=== PATIENT | female | born 1990 | race Caucasian/White ===

== ENCOUNTER 2017-03-20 20:00 | Inpatient (IN) | payer OTHER ==
--- NOTE | ~2017-03-20 | PN ---
Unit #: [id number] #: [id number] Patient: EDUARDA ARANGO [id number] [facility] [address] [place] [address] [id number] MR#: [id number] NAME: EDUARDA ARANGO ROOM: [facility] Age: 26 Sex: F Admission Date: 03/20/2017 : 1990 Attending Physician: Jose Solorzano M.D. Admitting Physician: Jose Solorzano M.D. Primary Care Physician: Primary Care Physician Vera GREY NOTES DATE 03/24/2017 DISCUSSION Ms. Eduarda Arango is a 26-year-old female seen on 03/24/2017. Patient tolerating medication fairly well. Compliant, cooperative. Patient reports sleeping good. Medication is helping her, cooperative, redirectable. Still isolative, guarded, flat affect. Complete review of system unremarkable. MENTAL STATUS EXAMINATION Patient's vital signs 98.5, 86, 16, 110/60. Attention span, concentration fair. Oriented in time, place and person. Mood and affect sad, dysphoric, flat. Speech monotone. Thought process concrete. Patient denied any thoughts of harming self or others but somewhat guarded. Recent and remote memory poor. Insight and judgement poor. DIAGNOSES 1. Opiate use disorder, severe. 2. Mood disorder NOS. ASSESSMENT/PLAN Advised to continue with current medication and therapeutic protocol. If needed, consider further adjustment of medication. Dictated by... Chiara Rocha/jessica TD: 03/24/2017 22:03 JOB #: [id number] Unit #: [id number] #: [id number] Patient: EDUARDA ARANGO AMISH PROGRESS NOTES Page 1 of 1 X Jose Solorzano MD X PROGRESS NOTE
--- NOTE | ~2017-03-20 | HP ---
Unit #: [id number] #: [id number] Patient: EDUARDA CUETO [id number] [place] [address] [id number] I MR#: [id number] NAME: EDUARDA CUETO ROOM: 86 Age: 26 Sex: F Admission Date: 03/20/2017 : 1990 Attending Physician: Jose Solorzano M.D. Admitting Physician: Jose Solorzano M.D. Primary Care Physician: Primary Care Physician No HISTORY AND PHYSICAL HISTORY OF PRESENT ILLNESS Eduarda is a 26 year old admitted to [facility] because of her abuse of opioids. PAST MEDICAL HISTORY Long history of opioid abuse. PAST SURGICAL HISTORY Nothing reported. ALLERGIES No known drug allergies. SOCIAL HISTORY Smokes 1 pack per day. Denies alcohol. Admits to a history of illicit substance abuse to include opioids. FAMILY HISTORY Medically noncontributory. REVIEW OF SYSTEMS CONSTITUTIONAL: No fever or chills. HEENT: Denies any sore throat, ear pain or runny nose. CARDIOVASCULAR: Denies chest pain, irregular heart rhythm or palpitations. CHEST: Denies shortness of breath or cough. No hemoptysis. GASTROINTESTINAL: Denies nausea, vomiting, diarrhea or chronic constipation. ENDOCRINE: Denies history of increased thirst or urination. No recent significant weight loss or gain. GENITOURINARY: Denies dysuria, frequency, or hematuria. SKIN: Denies any rashes. HEMATOLOGIC: Denies history of increased bleeding or bruising. MUSCULOSKELETAL: Denies any hot, swollen joints. No generalized muscle pain. NEUROLOGIC: Denies problems with vision or speech. No frequent, severe headaches. No numbness, tingling or weakness in any extremities. Denies loss of bladder or bowel control. CURRENT MEDICATIONS 1. Detox protocol. 2. Lamictal 25 mg q.a.m. 3. Zyprexa 5 mg q.h.s. 4. BuSpar 10 mg b.i.d. Unit #: [id number] #: [id number] Patient: EDUARDA CUETO PHYSICAL EXAMINATION GENERAL: Alert, well-nourished, in no apparent distress. VITAL SIGNS: Blood pressure 118/52, heart rate 64, respirations 16, temperature 98.6. WEIGHT: 115. HEIGHT: 5 feet 3 inches. SKIN: Warm and dry without rash or lesion. HEENT: Normocephalic. TMs not viewed. Oral and nasal passages clear. Conjunctivae clear. PERRLA. EOMs intact. NECK: Supple without lymphadenopathy or thyromegaly. HEART: Regular rate and rhythm without murmur. LUNGS: Clear. ABDOMEN: Soft, nontender. : Not done. EXTREMITIES: No evidence of cyanosis, clubbing or edema. Moves all without focal deficit. NEUROLOGICAL: Grossly within normal limits. Cranial Nerves: II: Visual tavarez are intact. III, IV AND : Extraocular movements are intact. Pupils are equal, round and reactive to light. V: Facial sensation is grossly normal. VII: Facial movements and expression are normal. VIII: Auditory acuity grossly intact. IX, X: Uvula is midline. Phonation is normal. XI: Patient shrugs shoulders and turns head normally. XII: Tongue protrudes in the midline. Sensory and Motor Function: Sensory and motor sensation is grossly normal. Motor: moves all extremities well. Coordination: Gait is normal. Deep Tendon Reflexes: Intact. IMPRESSION Psychiatric admission. RECOMMENDATIONS PSYCHIATRIC: Per psychiatrist. MEDICAL: See no contraindications to participate in facility's activities. MEDICAL PROGNOSIS Good. MEDICAL CONDITION Stable. Dictated by... Nika Hester PDaeADae-Gunner. for Chiara Mei/jessica TD: 03/21/2017 23:25 JOB #: [id number] Unit #: [id number] #: [id number] Patient: EDUARDA CUETO HISTORY AND PHYSICAL Page 1 of 1 X Nika Hester HISTORY AND PHYSICAL
--- NOTE | ~2017-03-20 | PN ---
Unit #: [id number] #: [id number] Patient: EDUARDA ARANGO [id number] [facility] [address] [place] [address] [id number] I MR#: [id number] NAME: EDUARDA ARANGO ROOM: [facility] Age: 26 Sex: F Admission Date: 03/20/2017 : 1990 Attending Physician: Jose Solorzano M.D. Admitting Physician: Jose Solorzano M.D. Primary Care Physician: Primary Care Physician Vera WELLINGTON PROGRESS NOTES DATE OF SERVICE: 03/25/2017 DISCUSSION Ms. Eduarda Arango is a 26-year-old female, seen on 03/25/2017. The patient interviewed, chart reviewed, and obtained information from nursing staff. The patient compliant, cooperative, making progress. Affect bright. Mood good. The patient scheduled to start naltrexone today and will get an injection of Vivitrol tomorrow. REVIEW OF SYSTEMS Complete review of systems unremarkable. MENTAL STATUS EXAMINATION General appearance, the patient dressed casually. Attention span and concentration, fair. Oriented in place and person. Mood and affect, labile. Speech, monotone. Thought process, concrete. The patient denied any thoughts of harming self or others. Recent and remote memory, poor. Insight and judgment, poor. DIAGNOSIS Opioid use disorder, severe. ASSESSMENT AND PLAN Advised to continue with current medication and therapeutic protocol. If needed, consider further adjustment of medication. Dictated by... Chiara Rocha/ant TD: 03/25/2017 14:21 JOB #: [id number] Unit #: [id number] #: [id number] Patient: EDUARDA ARANGO JUAN ANTONIOLEYDI PROGRESS NOTES Page 1 of 1 X Jose Solorzano MD PROGRESS NOTE
--- NOTE | ~2017-03-20 | DS ---
Unit #: [id number] #: [id number] Patient: KARMEN CUETO [id number] [facility] [address] [place] [address] [id number] MR#: [id number] NAME: KARMEN CUETO ROOM: [facility] Age: 26 Sex: F Admission Date: 03/20/2017 : 1990 Discharge Date: 03/26/2017 Attending Physician: Jose Solorzano M.D. Primary Care Physician: Primary Care Physician No DISCHARGE SUMMARY REASON FOR ADMISSION Opiate abuse, opiate detox. DIAGNOSTIC STUDIES Laboratory data is remarkable for a glucose of 118, urine drug screen positive for opiates. HOSPITAL COURSE The patient was admitted to inpatient unit on March 20, and discharged on March 26, 2017. The patient was treated on the inpatient unit with the detox protocol, detox monitoring, chemical dependency group, expressive therapy. The patient was responsive to treatment. Subsequently, the patient was discharged with the plan to follow up in outpatient program. DISCHARGE DIAGNOSES Theodore I Major depressive disorder, recurrent, severe, F33.2. Opiate use disorder, severe, F11.20. Theodore II Deferred. Theodore III Fibromyalgia. Theodore IV Psychosocial stressor. Theodore V INSTRUCTIONS TO PATIENT The patient is to follow up in outpatient clinic. DISCHARGE MEDICATIONS 1. BuSpar 20 mg daily for anxiety 2. Zyprexa 5 mg at bedtime for mood stabilization 3. The patient was also given ReVia challenge and scheduled to get Vivitrol injection 380 mg deep intramuscularly monthly and follow up in CD/IOP program Dictated by... Chiara Rocha/winston TD: 03/27/2017 12:21 Unit #: [id number] #: [id number] Patient: KARMEN CUETO JOB #: [id number] DISCHARGE SUMMARY Page 1 of 1 X Jose Solorzano MD X DISCHARGE SUMMARY
--- NOTE | ~2017-03-20 | PN ---
Unit #: [id number] #: [id number] Patient: KARMEN CUETO [id number] [facility] [address] [place] [address] [id number] I MR#: [id number] NAME: KARMEN CUETO ROOM: [facility] Age: 26 Sex: F Admission Date: 03/20/2017 : 1990 Attending Physician: Jose Solorzano M.D. Admitting Physician: Jose Solorzano M.D. Primary Care Physician: Primary Care Physician Vera GREY NOTES DATE OF SERVICE: 03/23/2017 DISCUSSION Ms. Lerner is a 26-year-old female, seen on 03/23/2017. The patient continues to be isolative, guarded, paranoid, reported having withdrawal symptoms, sad, depressed, anxious. The patient still having lot of anxiety, mood labile, compliant with medication. Complete review of systems unremarkable. MENTAL STATUS EXAMINATION General appearance, the patient dressed casually. Attention span and concentration, fair. Oriented in place and person. Mood and affect, labile. Speech, monotone. Thought process, concrete. The patient denied any thoughts of harming others, but having passive SI, withdrawn, isolative, guarded. Recent and remote memory, poor. Insight and judgment, poor. DIAGNOSES 1. Opioid use disorder, severe. 2. Mood disorder, not otherwise specified. ASSESSMENT AND PLAN Advised to continue with current medication and therapeutic protocol. If needed, consider further adjustment of medication. Dictated by... Chiara Rocha/ant TD: 03/23/2017 17:22 JOB #: [id number] Unit #: [id number] #: [id number] Patient: KARMEN CUETO AMISH PROGRESS NOTES Page 1 of 1 X Jose Solorzano MD PROGRESS NOTE
--- NOTE | ~2017-03-20 | PN ---
Unit #: [id number] #: [id number] Patient: KARMEN CUETO [id number] [facility] [address] [place] [address] [id number] MR#: [id number] NAME: KARMEN CUETO ROOM: [facility] Age: 26 Sex: F Admission Date: 03/20/2017 : 1990 Attending Physician: Jose Solorzano M.D. Admitting Physician: Jose Solorzano M.D. Primary Care Physician: Primary Care Physician Vera GREY NOTES DATE OF SERVICE: 03/21/2017 DISCUSSION Ms. Lerner is a 26-year-old female, seen on 03/21/2017. The patient interviewed, chart reviewed, and obtained information from nursing staff. The patient is sad, depressed, anxious, nervous, withdrawn, flat, dysphoric mood. The patient is still having withdrawal symptoms. Mood is sad and depressed. Vital signs; heart rate 65 and respirations 16. REVIEW OF SYSTEMS Complete review of systems is unremarkable. MENTAL STATUS EXAMINATION General appearance; the patient dressed casually. Attention span and concentration, fair. Oriented in place and person. Mood and affect, labile. Speech, monotone. Thought process, concrete. The patient reported having hallucination of voices and suicidal ideation. Denied any plan. Recent and remote memory, fair. Insight and judgment, fair to slightly impaired. DIAGNOSES Psychiatric: Major depressive disorder, recurrent; opioid use disorder, severe. ASSESSMENT AND PLAN Advised to continue with current medication. If needed, consider adding SSRI. Dictated by... Chiara Rocha/ant TD: 03/22/2017 07:44 JOB #: [id number] Unit #: [id number] #: [id number] Patient: KARMEN CUETO AMISH PROGRESS NOTES Page 1 of 1 X Jose Solorzano MD PROGRESS NOTE
--- NOTE | ~2017-03-20 | PN ---
Unit #: [id number] #: [id number] Patient: KARMEN CUETO [id number] [facility] [address] [place] [address] [id number] MR#: [id number] NAME: KARMEN CUETO ROOM: [facility] Age: 26 Sex: F Admission Date: 03/20/2017 : 1990 Attending Physician: Jose Solorzano M.D. Admitting Physician: Jose Solorzano M.D. Primary Care Physician: Primary Care Physician Vera GREY NOTES DATE 03/22/2017 DISCUSSION Ms. Lerner is a 26-year-old female, seen on 03/22/2017. The patient interviewed, chart reviewed, and obtained information from the nursing staff. The patient was compliant and cooperative. Mood sad and dysphoric, flat affect. The patient is detoxing from opiates. The patient reports feeling better but still having some withdrawal symptoms, anxious, nervous. The patient's vital signs, 98.5, 60, 95/48. REVIEW OF SYSTEMS Complete review of systems unremarkable. MENTAL STATUS EXAMINATION General appearance: Patient dressed casually. Attention span and concentration, fair. Oriented in time, place, and person. Mood and affect, labile. The patient denied any thoughts of harming self or others. Recent and remote memory, poor. Insight and judgment, poor. DIAGNOSES 1. Opiate use disorder, severe. 2. Mood disorder, NOS. ASSESSMENT/PLAN Advised to continue with the current medication and therapeutic protocol, and if needed consider further adjustment of medication. Dictated by... Chiara Rocha/winston TD: 03/23/2017 10:03 JOB #: [id number] Unit #: [id number] #: [id number] Patient: KARMEN CUETO AMISH PROGRESS NOTES Page 1 of 1 X Jose Solorzano MD PROGRESS NOTE
--- NOTE | ~2017-03-20 | PA ---
Unit #: [id number] #: [id number] Patient: KARMEN CUETO [id number] [place] [address] [id number] MR#: [id number] NAME: KARMEN CUETO ROOM: [facility] Age: 26 Sex: F Admission Date: 03/20/2017 : 1990 Date of Assessment: 03/21/2017 Attending Physician: Jose Solorzano M.D. Admitting Physician: Jose Solorzano M.D. Primary Care Physician: Primary Care Physician No PSYCHIATRIC ASSESSMENT INFORMANTS The patient reliability, fair informant and chart reliability, good. CHIEF COMPLAINT Detox from Lortab. HISTORY OF PRESENT ILLNESS Ms. Lerner is a 26-year-old female, presented with the above-mentioned complaint. The patient reported using Lortab. Reported also using [place] and Lortab 60 to 80 mg for the last 1 year. The patient reports last use of [place] 1 month ago and Lortab last use 2 days ago. The patient reported suicidal ideation with a plan to overdose on sleeping pills. The patient reported hearing a male voice. No command hallucination. The patient reported paranoid thinking, multiple stressors, walking off from the job, feeling sad and depressed. The patient also reported unemployed for the last 2 weeks. She has GED. Lives with her 3-year-old son. The patient has a history of fibromyalgia. Reported conflict with sister and son's dad over the drug use and anger issues. The patient reported she takes olanzapine 5 mg at bedtime, BuSpar 10 mg b.i.d., and lamotrigine. The patient reported tobacco use, age of onset 18 and opioid, age of onset 25. Longest period of sobriety a week, last period of sobriety a month. The patient reported no history of blackout, HIV, hepatitis, or drug abuse. History of withdrawal symptoms as mentioned above. The patient is currently reporting abdominal cramping, muscle cramping, diaphoresis, diarrhea, depressed mood, headache, irritability, nervousness, and poor appetite. Needing inpatient admission at this time for psychiatric stabilization. PAST PSYCHIATRIC HISTORY Unremarkable for any history of previous treatment except at age 15, inpatient at [facility]. FAMILY HISTORY AND SOCIAL HISTORY No history of abuse. Currently, unemployed. Poor support system. MEDICAL HISTORY Remarkable for fibromyalgia. Musculoskeletal; muscle strength and tone, no atrophy or abnormal movement. Gait normal. MEDICATION HISTORY The patient is on Lamictal 25 mg in the morning, BuSpar 10 mg b.i.d., and Zyprexa 5 mg at bedtime. Unit #: [id number] #: [id number] Patient: KARMEN CUETO ALLERGIES No known drug allergies. SUBSTANCE ABUSE HISTORY Please see above. REVIEW OF SYSTEMS HEENT: Eyes, clear. Ears, nose, mouth, and throat; clear. CARDIOVASCULAR: Unremarkable. RESPIRATORY: Unremarkable. GI: Unremarkable. : Unremarkable. SKIN: Unremarkable. LYMPH NODE: Unremarkable. NEUROLOGIC: Unremarkable. ENDOCRINE: Unremarkable. HEMATOLOGIC: Unremarkable. ALLERGIC/IMMUNOLOGIC: Unremarkable. MUSCULOSKELETAL: Muscle strength and tone, no atrophy or abnormal movement. Gait normal. MENTAL STATUS EXAMINATION CONSTITUTIONAL: Measurement of vital signs; temperature 98.6, heart rate 65, respiratory rate 16, and blood pressure 118/53. Height 5 feet 3 inches and weight 115 pounds. GENERAL APPEARANCE: The patient dressed casually. The patient did not show any facial deformity. MUSCULOSKELETAL: Please see above. PSYCHIATRIC EXAMINATION Description of speech; regular rate, normal volume, normal articulation, coherent, and spontaneous. Description of thought process, goal directed. Description of association, intact. Description of abnormal psychotic thinking; the patient denied any hallucinations or delusions, but reported to staff hearing a male voice, feeling sad and depressed, and suicidal ideation. Description of the patient's judgment: Concerning everyday activity, poor. Social situation, poor. Concerning psychiatric condition, poor. ASSETS AND LIABILITIES Assets, the patient is articulate and able to take care of her ADL. Liability, history of depression and substance abuse. ADMITTING DIAGNOSES Psychiatric: 1. Major depressive disorder, recurrent, severe, F33.2. 2. Opioid use disorder, F11.20. Secondary diagnosis: Deferred. Medical diagnosis: Fibromyalgia. Stressors: Psychosocial stressors. PSYCHIATRIC PLAN AND TREATMENT GOAL AND DISCHARGE PLAN 1. Advised to admit the patient on the inpatient unit. Provide safe, supportive, and structured environment. 2. Ordered labs; CBC, CMP, UA, and UDS. 3. Detox protocol and detox monitoring. Unit #: [id number] #: [id number] Patient: KARMEN CUETO 4. Advised to resume home medication. If needed, consider further adjustment of medication. The patient to attend all the programing, group therapy, individual therapy, and chemical dependency group. TREATMENT GOAL To attain euthymic mood, gain insight into her problem, and learn coping skills. DISCHARGE PLAN Plan to stabilize the patient and consider followup in outpatient program. ESTIMATED LENGTH OF STAY 5 to 7 days. Dictated by... Chiara Rocha/ant TD: 03/21/2017 16:44 JOB #: [id number] PSYCHIATRIC ASSESSMENT Page 1 of 1 X Jose Solrozano MD X PSYCHIATRIC ASSESSMENT
[2017-03-21 12:24] LABS: BASOPHIL% 0.5 % (0-2.5); EOSINOPHIL# 0.3 X10e3 (0-0.7); EOSINOPHIL% 4.3 % (0.0-7.0); HEMATOCRIT 40.4 % (35.0-45.0); HEMOGLOBIN 13.5 gm/dL (12.0-16.0); LYMPHOCYTE# 2.3 X10e3 (1.0-3.5); LYMPHOCYTE% 31.3 % (17.0-45.0); MEAN CELL VOLUME 91.4 FL (83-96); MEAN CORPUSCULAR HEMOGLOBIN 30.6 PG (28-34); MEAN CORPUSCULAR HGB CONC 33.4 g/dL (30-36); MEAN PLATELET VOLUME 9.5 FL (6.5-11.5); MONOCYTE# 0.4 X10e3 (0-1.0); MONOCYTE% 4.8 % (3.0-12.0); NEUTROPHIL# 4.4 X10e3 (1.5-7.1); NEUTROPHIL% 59.1 % (40-75); PLATELET COUNT 210 X10e3 (140-420); RED BLOOD COUNT 4.42 X10e (3.90-5.30); RED CELL DISTRIBUTION WIDTH 12.8 % (11.0-15.5); WHITE BLOOD COUNT 7.4 X10e3 (4.0-10.5)
[2017-03-21 12:25] LABS: DIFF IND NO
[2017-03-21 12:36] LABS: CALCIUM SERUM 9.3 mg/dL (8.4-10.2); POTASSIUM 3.7 mmol/L (3.5-5.1)
[2017-03-21 12:38] LABS: ALBUMIN SERUM 4.2 g/dL (3.5-5.0); BUN/CREATININE RATIO 16.25; CREATININE SERUM 0.8 mg/dL (0.6-1.4); GLOM FILT RATE Estimated 103.3 mL/min (>60); PROTEIN TOTAL SERUM 6.9 g/dL (6.0-8.3)
[2017-03-22 10:29] LABS: URINE APPEARANCE CLOUDY; URINE BILIRUBIN NEG (NEG); URINE BLOOD NEG (NEG); URINE COLOR YELLOW; URINE GLUCOSE NORM (NORM); URINE KETONE NEG (NEG); URINE LEUKOCYTE ESTERASE NEG (NEG); URINE NITRATE NEG (NEG); URINE PROTEIN NEG (NEG); URINE SPECIFIC GRAVITY 1.025 (1.003-1.035); URINE UROBILINOGEN NORM (NORM)
[2017-03-22 11:13] LABS: AMPHETAMINE NEG (NEG); BARBITURATES NEG (NEG); BENZODIAZEPINES NEG (NEG); COCAINE NEG (NEG); MARIJUANA NEG (NEG); OPIATES POS (NEG); TRICYCLIC ANTIDEPRESSANTS POS (NEG); U METHADONE NEG (NEG)
== END 2017-03-26 12:30 | DRG 885 ==
LOC: P1E 22:17
PROVIDERS: Psychiatry & Neurology Psychiatry
PROC: HZ2ZZZZ Detoxification Services for Substance Abuse Treatment (ICD-10-PCS; principal; 2017-03-20)
DX: F33.2 Major depressive disorder, recurrent severe without psychotic features (principal); F11.20 Opioid dependence, uncomplicated; M79.7 Fibromyalgia; F17.210 Nicotine dependence, cigarettes, uncomplicated; F39 Unspecified mood [affective] disorder
CPT/HCPCS: 80053; 80307; 81003; 84703; 85025; 86592